=== PATIENT | male | born 1995 | race African-American/Black ===

== ENCOUNTER 2020-03-01 12:58 | Emergency (ER) | payer MEDICAID ==
[~2020-03-01] VITALS: Ht 185.4 cm; Wt 79.0 kg
[2020-03-01 13:12] VITALS: BP 119/76
== END 2020-03-01 14:10 | disposition home or self-care (01) ==
LOC: ER 12:58
DX: J02.9 Acute pharyngitis, unspecified (principal); L04.9 Acute lymphadenitis, unspecified
CPT/HCPCS: 87070; 87430; 99283